=== PATIENT | male | born 1975 | race Caucasian/White ===

== ENCOUNTER → 2024-05-09 | Emergency (ER) | payer OTHER ==
[~2024-05-09] VITALS: Ht 165.1 cm; Wt 81.6 kg
[2024-05-09 13:14] VITALS: BP 158/94; TEMP 98.1; O2SAT 100
== END | disposition home or self-care (01) ==
LOC: ER 12:50
DX: R00.2 Palpitations (principal); I10 Essential (primary) hypertension